=== PATIENT | male | born 1985 | race Caucasian/White ===

== ENCOUNTER 2017-12-25 16:40 | Emergency (ER) | payer OTHER ==
[~2017-12-25] VITALS: Ht 177.8 cm; Wt 88.5 kg
--- NOTE | 2017-12-25 17:12 | ED Integumentary General ---
General Chief Complaint: Laceration Stated Complaint: LACERATION;TO PUBIC AREA Source: patient Exam Limitations: no limitations History of Present Illness Date Seen by Provider: Dec 25, 2017 Time Seen by Provider: 17:07 Initial Comments Patient is a 32-year-old male who presents to the emergency room with a approximately 2 cm laceration to his pubic area. He reports that he was using a box knife to cut a zip tie when it slipped causing a laceration. Bleeding is controlled. He is up-to-date on his tetanus vaccine. Timing/Duration: just prior to arrival Location: torso (pubic area) Associated Symptoms: denies symptoms Allergies and Home Medications Allergies Coded Allergies: No Known Drug Allergies (Unverified , 12/25/17) Patient Home Medication List Home Medication List Reviewed: Yes Review of Systems Review of Systems Constitutional: see HPI; No chills, No fever Skin: see HPI, other (laceration) Past Hpzncjk-[id number]-Sdjltq Hx Past Med/Social Hx: Reviewed Nursing Past Med/Soc Hx Family Medical History Reviewed Nursing Family Hx Physical Exam Vital Signs Vital Signs - First Documented 12/25/17 16:53 Temp 96.0 Pulse 68 Resp 16 B/P (MAP) 126/73 (90) Pulse Ox 100 Capillary Refill : General Appearance: WD/WN, no apparent distress Neurologic/Psychiatric: alert, normal mood/affect, oriented x 3 Skin: normal color, warm/dry, other (laceration) Skin Problem Character: linear (subcutaneous linear laceration approximately 2 cm in length. No under lying structural involvment. ) Procedures/Interventions Wound Location: Other (pubic area) Wound Length (cm): 2.5 Wound's Depth, Shape: superficial, linear, sub Q Wound Explored: clean Irrigated w/ Saline (ccs): 50 Anesthesia: 1% Lidocaine Volume Anesthetic (ccs): 2 Staple Repair: Stapler 35W Number of Sutures: 3 Progress The wound was anesthetized with approximately 2 mL of 1% lidocaine without epinephrine. The wound was cleaned and irrigated with approximately 50 cc of normal saline Betasept. The laceration was repaired with 3 lucy. Progress/Results/Core Measures Results/Orders My Orders Orders - TAM DAMIAN Lidocaine 1% Inj 20 Ml (Xylocaine 1% Inj (12/25/17 17:15) Medications Given in ED Vital Signs/I&O 12/25/17 12/25/17 16:53 17:50 Temp 96.0 96.0 Pulse 68 68 Resp 16 16 B/P (MAP) 126/73 (90) 126/73 (90) Pulse Ox 100 100 Progress Progress Note : Time: 17:40 Progress Note I have seen and evaluated the patient. I have used lucy to close the wound due to location and being unable to suture do to the amount of hair in that area. He agrees with plans for discharge and return precautions were. Departure Impression Primary Impression: Laceration Disposition: 01 HOME, SELF-CARE Condition: Stable/Unchanged Departure-Patient Inst. Decision time for Depature: 17:43 Referrals: UNKNOWN (PCP) Primary Care Physician Patient Instructions: Laceration Repair With Lucy (DC) Add. Discharge Instructions: Return back to the emergency room 7-10 days for staple removal. Watch for signs of infection such as increased redness, pain, drainage, swelling. Return back to the emergency room for any other concerns as needed. All discharge instructions reviewed with patient and/or family. Voiced understanding. Images Female/Male 1 - Laceration TAM DAMIAN Dec 25, 2017 17:12
[2017-12-25] MEDS: LIDOCAINE 1% INJ 20 ML 20 ML VIAL INJ ONE (17:28)
[2017-12-25 17:50] VITALS: BP 126/73
== END 2017-12-25 17:50 | disposition home or self-care (01) ==
LOC: ER 16:41
DX: S31.119A Laceration without foreign body of abdominal wall, unspecified quadrant without penetration into peritoneal cavity, initial encounter (principal); W27.8XXA Contact with other nonpowered hand tool, initial encounter